=== PATIENT | male | born 1965 | race African-American/Black ===

== ENCOUNTER 2024-01-16 15:09 | Inpatient (IN) | payer OTHER ==
[2024-01-16 15:47] VITALS: BMI 25.7
[2024-01-16] MEDS ORDERED: hydrOXYzine PAMOATE 25 MG CAPSULE (FP) PO PRN (16:30)
[2024-01-16] MEDS ORDERED: BENZOCAINE/MENTHOL (CHLORASEPTIC ) LOZENGE MM PRN (16:30)
[2024-01-16] MEDS ORDERED: POLYETHYLENE GLYCOL (HEALTHYLAX) 3350 17 GM PACKET PO PRN (16:30)
[2024-01-16] MEDS ORDERED: DICYCLOMINE HCL 10 MG CAPSULE PO PRN (16:30)
[2024-01-16] MEDS ORDERED: MAG HYDROX/AL HYDROX/SIMETH 30 ML UNIT-DOSE CUP PO PRN (16:30)
[2024-01-16] MEDS ORDERED: MAGNESIUM HYDROX 2400MG/30ML ORAL SUSPENSION 30 ML CUP PO PRN (16:30)
[2024-01-16] MEDS ORDERED: IBUPROFEN 400 MG TABLET (FP) PO PRN (16:30)
[2024-01-16] MEDS ORDERED: ONDANSETRON *ODT* 4 MG TABLET SL PRN (16:30)
[2024-01-16] MEDS ORDERED: LOPERAMIDE HCL 2 MG CAPSULE PO PRN (16:30)
[2024-01-16] MEDS ORDERED: ACETAMINOPHEN 325 MG TABLET (FP) PO PRN (16:30)
[2024-01-16] MEDS ORDERED: NICOTINE POLACRILEX 2 MG GUM BUC PRN (16:30)
[2024-01-16] MEDS ORDERED: BISMUTH SUBSALICYLATE 524 MG/30 ML PO PRN (16:30)
[2024-01-16] MEDS ORDERED: NALOXONE (NARCAN) HCL 4 MG/0.1 ML SPRAY NS PRN (16:30)
[2024-01-16] MEDS ORDERED: METHOCARBAMOL 500 MG TABLET PO PRN (16:30)
[2024-01-16] MEDS ORDERED: BENZONATATE 200 MG CAPSULE PO PRN (16:30)
[2024-01-16] MEDS ORDERED: IBUPROFEN 600 MG TABLET (FP) PO PRN (16:30)
[2024-01-16] MEDS ORDERED: guaiFENesin 600 MG TABLET.ER (FP) PO PRN (16:30)
[2024-01-16] MEDS: THIAMINE 100 MG TABLET PO SCH (22:11)
[2024-01-16] MEDS: MELATONIN 5 MG TABLETS PO SCH (22:11)
[2024-01-16] MEDS: BUPRENORPHINE/NALOXONE 8 MG/2 MG FILM PACKET SL SCH (22:46)
[2024-01-17] MEDS: PRENATAL VITAMINS W/ FOLIC ACID TABLET (FP) PO SCH (10:10)
[2024-01-17] MEDS: NICOTINE 14 MG/24 HOURS TOPICAL PATCH TD SCH (10:10)
[2024-01-17 11:34] LABS: CHLORIDE 110 mmol/L (98-107); HEMATOCRIT 35.7 % (35.4-49); HEMOGLOBIN 11.9 GM/dL (11.7-16.9); MCH 30.1 pg (25.7-33.7); MCHC 33.3 g/dl (32.0-35.9); MEAN CELL VOLUME 90.3 fl (80-96); MEAN PLT VOLUME 7.4 fl (7.5-11.1); PLATELET COUNT 260 10^3/uL (134-434); POTASSIUM 4.2 mmol/L (3.5-5.1); RBC 3.95 M/mm3 (4.00-5.60); RDW 15.7 % (11.9-15.9); SODIUM 149 mmol/L (136-145); WHITE BLOOD COUNT 4.2 K/mm3 (4.0-10.0)
[2024-01-17 11:37] LABS: ALBUMIN 3.3 g/dl (3.4-5.0); CALCIUM 8.9 mg/dL (8.5-10.1)
[2024-01-17 11:38] LABS: ANION GAP 10 mmol/L (4-13); BLOOD UREA NITROGEN 25.6 mg/dL (7-18); CO2 30 mmol/L (21-32); GLUCOSE,RANDOM 83 mg/dL (74-106)
[2024-01-17 11:41] LABS: CREATININE 1.1 mg/dL (0.55-1.3)
[2024-01-17 11:42] LABS: BILIRUBIN,TOTAL 0.3 mg/dL (0.2-1); SGOT/AST 10 U/L (15-37); SGPT/ALT 19 U/L (13-61); TOT PROT 6.3 g/dl (6.4-8.2)
[2024-01-17 11:44] LABS: ALK PHOS 79 U/L (45-117)
[2024-01-18 06:00] VITALS: RESP 16
[2024-01-18 09:20] VITALS: BP 129/76; PULSE 67; TEMP 96
[2024-01-18] MEDS: NALOXONE (NYS OPIOID OVERDOSE PROGRAM) 4 MG/0.1 ML SPRAY NS SCH (12:03)
== END 2024-01-18 12:39 | disposition other institution (70) | DRG 773 ==
LOC: YASAS 15:09 → Y3N 17:09
PROVIDERS: ADMIT Allergy & Immunology; ATTEND Surgery
PROC: HZ2ZZZZ Detoxification Services for Substance Abuse Treatment (ICD-10-PCS; principal; 2024-01-16)
DX: F10.230 Alcohol dependence with withdrawal, uncomplicated (principal); F11.20 Opioid dependence, uncomplicated; F14.20 Cocaine dependence, uncomplicated; F17.210 Nicotine dependence, cigarettes, uncomplicated; F20.9 Schizophrenia, unspecified; F32.A Depression, unspecified; I10 Essential (primary) hypertension; Z59.02 Unsheltered homelessness
CPT/HCPCS: 36415; 80053; 80305; 80307; 85027; 86780; 93005; 93010